=== PATIENT | female | born 1940 | race Caucasian/White ===

== ENCOUNTER → 2016-12-02 | Outpatient (CLI) | payer MEDICARE | LOC: RAD 07:51 | PROVIDERS: ATTEND Specialist | DX: C90.00 Multiple myeloma not having achieved remission (principal) | CPT/HCPCS: 78816; A9552 ==

== ENCOUNTER → 2017-09-27 | Outpatient (CLI) | payer MEDICARE ==
--- NOTE | 2017-09-27 16:11 | RADIOLOGY REPORT (SQ) ---
EXAM DESCRIPTION: BONE SURVEY COMPLETE COMPLETED DATE/TIME: 09/27/2017 3:44 pm REASON FOR STUDY: C90.00 MULTIPLE MYELOMA NOT HAVING ACHIEVED REMISSION C90.00 MULTIPLE MYELOMA NOT HAVING ACHIEVED REMISSION COMPARISON: None. TECHNIQUE: Images of the axial and proximal appendicular skeleton are obtained, along with lateral s kull and frontal chest films. LIMITATIONS: None. FINDINGS: AP CHEST: No bony findings. Lungs are clear. LATERAL SKULL: No worrisome bone lesions. AP BOTH HUMERI: The proximal right humerus is somewhat heterogeneous and there is a small well-circum scribed lytic lesion in the mid humerus. TWO-VIEW LUMBAR SPINE: No worrisome bone lesions. Scoliosis, degenerative disc changes and spondylos is and facet arthropathy are seen. TWO-VIEW THORACIC SPINE: No worrisome bone lesions. AP PELVIS: No worrisome bone lesions. AP BOTH FEMURS: There is a 7 mm well-circumscribed lytic lesion in the base of the right femoral neck . OTHER: Cervical degenerative disc changes and spondylosis. IMPRESSION: There are subtle findings in the right humerus and right hip as described. TECHNICAL DOCUMENTATION: JOB ID: [id number] [employer]- All Rights Reserved Reading location - IP/workstation name: [email or web address]
== END ==
LOC: RAD 15:35
PROVIDERS: ATTEND Internal Medicine Hematology & Oncology
DX: C90.00 Multiple myeloma not having achieved remission (principal)
CPT/HCPCS: 77075

== ENCOUNTER → 2018-01-17 | Outpatient (CLI) | payer MEDICARE ==
--- NOTE | 2018-01-17 17:45 | RADIOLOGY REPORT (SQ) ---
EXAM DESCRIPTION: SHOULDER LEFT 2 OR MORE VIEWS COMPLETED DATE/TIME: 01/17/2018 5:36 pm REASON FOR STUDY: M26.52 LIMITED MANDIBULAR RANGE OF MOTION C90.00 MULTIPLE MYELOMA NOT HAVIN M26.52 LIMITED MANDIBULAR RANGE OF MOTION C90.00 MULTIPLE MYELOMA NOT HAVING ACHIEVED REMISSION COMPARISON: 09/27/2017 NUMBER OF VIEWS: Three views. TECHNIQUE: Internal rotation, external rotation, and Y view images acquired of the left shoulder. LIMITATIONS: None. FINDINGS: MINERALIZATION: Osteopenia BONES: Multiple small lytic lesions mass seen in the humerus clavicle and scapular not identified on the previous skeletal survey. Possible rib lesions. JOINTS: No dislocation. VISUALIZED LUNGS AND RIBS: Possible rib lesions SOFT TISSUES: No radiopaque foreign body. OTHER: No other significant finding. IMPRESSION: Progression disease. There are now multiple lesions seen in the humerus, scapula, clavi roseline consistent with myeloma. Possible rib lesions. TECHNICAL DOCUMENTATION: JOB ID: [id number] [employer]- All Rights Reserved Reading location - IP/workstation name: [email or web address]
== END ==
LOC: RAD 17:10
PROVIDERS: ATTEND Internal Medicine Hematology & Oncology
DX: C90.00 Multiple myeloma not having achieved remission (principal); M25.612 Stiffness of left shoulder, not elsewhere classified

== ENCOUNTER → 2018-01-23 | Outpatient (CLI) | payer MEDICARE ==
--- NOTE | 2018-01-23 17:03 | RADIOLOGY REPORT (SQ) ---
EXAM DESCRIPTION: CHEST 2 VIEWS COMPLETED DATE/TIME: 01/23/2018 4:37 pm REASON FOR STUDY: SHORTNESS OF BREATH,CHEST PAIN COMPARISON: None. EXAM PARAMETERS: NUMBER OF VIEWS: two views TECHNIQUE: Digital Frontal and Lateral radiographic views of the chest acquired. RADIATION DOSE: NA LIMITATIONS: none FINDINGS: LUNGS AND PLEURA: Lungs are mildly hyperexpanded. A minimal pleural effusion is seen post eriorly on the lateral view. No infiltrate. MEDIASTINUM AND HILAR STRUCTURES: No masses or contour abnormalities. HEART AND VASCULAR STRUCTURES: Heart size is borderline. BONES: No acute findings. HARDWARE: None in the chest. OTHER: No other significant finding. IMPRESSION: Mild chronic lung changes. Borderline cardiomegaly without lee CHF. Minimal pleural effusion seen posteriorly. TECHNICAL DOCUMENTATION: JOB ID: [id number] [employer]- All Rights Reserved Reading location - IP/workstation name: [email or web address]
== END ==
LOC: RAD 16:18
PROVIDERS: ATTEND Internal Medicine Hematology & Oncology
DX: R06.02 Shortness of breath (principal); R07.9 Chest pain, unspecified
CPT/HCPCS: 71046

== ENCOUNTER 2018-01-26 07:27 | Outpatient (CLI) | payer MEDICARE ==
[~2018-01-26 07:27] MED LIST: ACETAMINOPHEN 325 MG TABLET PO PRN; DARATUMUMAB IV PRN; DIPHENHYDRAMINE HCL 50 MG in NORMAL SALINE 50 ML IV PRN; METHYLPREDNISOLONE SOD SUCC/PF 100 MG in NORMAL SALINE 50 ML IV PRN; NORMAL SALINE 250 ML IV PRN; NORMAL SALINE IV PRN
[2018-01-26 08:11] LABS: HEMATOCRIT 29.9 % (36.0-47.0); HEMOGLOBIN 10.2 g/dL (12.0-15.5); MEAN CORPUSCULAR HEMOGLOBIN 32.7 pg (27.0-33.4); MEAN CORPUSCULAR HGB CONC 34.3 g/dL (32.0-36.0); MEAN CORPUSCULAR VOLUME 95 fl (80-97); PLATELET COUNT 142 10^3/uL (150-450); RED BLOOD COUNT 3.13 10^6/uL (3.72-5.28); RED CELL DISTRIBUTION WIDTH 16.7 % (11.5-14.0)
[2018-01-26 08:36] LABS: ABSOLUTE LYMPHOCYTES# (MANUAL) 0.7 10^3/uL (0.5-4.7); ABSOLUTE MONOCYTES # (MANUAL) 0.4 10^3/uL (0.1-1.4); ABSOLUTE NEUTROPHILS# (MANUAL) 5.5 10^3/uL (1.7-8.2); BAND NEUTROPHILS % (MANUAL) 2 % (3-5); BASOPHILS % (MANUAL) 0 % (0-2); EOSINOPHILS % (MANUAL) 5 % (0-6); LYMPHOCYTES % (MANUAL) 10 % (13-45); MONOCYTES % (MANUAL) 6 % (3-13); SEGMENTED NEUTROPHILS % (MAN) 77 % (42-78); TOTAL CELLS COUNTED 100
[2018-01-26 08:37] LABS: ANISOCYTOSIS 1+; OVALOCYTES 1+; PLATELET COMMENT DECREASED; POIKILOCYTOSIS 1+; POLYCHROMASIA SLIGHT
[2018-01-26] MEDS ORDERED: DEXAMETHASONE SOD PHOSPHATE INJ 4 MG/1 ML VIAL ONE (12:16)
[2018-01-26] MEDS ORDERED: DIPHENHYDRAMINE HCL 50 MG/ML VIAL ONE (12:16)
[2018-01-26] MEDS ORDERED: DEXAMETHASONE SOD PHOS INJ 10 MG/1 ML VIAL IV ONE (12:30)
[2018-01-26] MEDS ORDERED: DIPHENHYDRAMINE HCL 50 MG/ML VIAL IV ONE (12:30)
[2018-01-26] MEDS ORDERED: LORATADINE 10 MG TABLET PO ONE (12:30)
[2018-01-26 17:18] VITALS: BP 167/62
== END 2018-01-26 18:09 | disposition home or self-care (01) ==
LOC: II 07:27 → 5TH 07:40 → II 18:09
PROVIDERS: ATTEND Internal Medicine Hematology & Oncology
PROC: 3E0330M Introduction of Antineoplastic, Monoclonal Antibody, into Peripheral Vein, Percutaneous Approach (ICD-10-PCS; principal; 2018-01-26)
PROC: 3E033GC Introduction of Other Therapeutic Substance into Peripheral Vein, Percutaneous Approach (ICD-10-PCS; 2018-01-26)
PROC: 3E0333Z Introduction of Anti-inflammatory into Peripheral Vein, Percutaneous Approach (ICD-10-PCS; 2018-01-26)
DX: Z51.11 Encounter for antineoplastic chemotherapy (principal); C90.00 Multiple myeloma not having achieved remission; E83.119 Hemochromatosis, unspecified; N17.9 Acute kidney failure, unspecified; N18.9 Chronic kidney disease, unspecified; J06.9 Acute upper respiratory infection, unspecified; D64.9 Anemia, unspecified; G47.00 Insomnia, unspecified; E83.52 Hypercalcemia; Z99.2 Dependence on renal dialysis
CPT/HCPCS: 86900; 86901; 36415; 86850; 85025; 96413; 96415; 96367; A9270 ×2; J1100; J1200; J2930; J7030; J9145

== ENCOUNTER → 2018-01-29 | Day surgery (SDC) | payer MEDICARE ==
[~2018-01-29] MED LIST changes: +BACITRACIN INJ 50,000 UNIT VIAL ONE; +CEFAZOLIN 1 GM/D5W RTU 1 GM/50 ML RTUPB IV PRN; -DARATUMUMAB IV PRN; -DIPHENHYDRAMINE HCL 50 MG in NORMAL SALINE 50 ML IV PRN; +FENTANYL CITRATE INJ/PF 100 MCG/2 ML AMPUL ONE; +LIDOCAINE 0.5% INJ-PF (5 MG/ML) 50 ML SDV ONE; -METHYLPREDNISOLONE SOD SUCC/PF 100 MG in NORMAL SALINE 50 ML IV PRN; +MIDAZOLAM 2 MG/2 ML INJ ONE; -NORMAL SALINE 250 ML IV PRN; -NORMAL SALINE IV PRN
[2018-01-29 11:15] VITALS: BP 185/87
[2018-01-29 11:42] LABS: HEMATOCRIT 32.3 % (36.0-47.0); HEMOGLOBIN 11.2 g/dL (12.0-15.5); MEAN CORPUSCULAR HEMOGLOBIN 32.7 pg (27.0-33.4); MEAN CORPUSCULAR HGB CONC 34.5 g/dL (32.0-36.0); MEAN CORPUSCULAR VOLUME 95 fl (80-97); PLATELET COUNT 150 10^3/uL (150-450); RED BLOOD COUNT 3.41 10^6/uL (3.72-5.28); RED CELL DISTRIBUTION WIDTH 16.5 % (11.5-14.0); WHITE BLOOD COUNT 8.9 10^3/uL (4.0-10.5)
[2018-01-29 11:53] LABS: ALANINE AMINOTRANSFERASE 40 U/L (9-52); ALBUMIN 3.3 g/dL (3.5-5.0); ALKALINE PHOSPHATASE 187 U/L (38-126); ANION GAP 14 (5-19); ASPARTATE AMINO TRANSFERASE 20 U/L (14-36); BILIRUBIN,DIRECT 0.7 mg/dL (0.0-0.4); BILIRUBIN,TOTAL 0.9 mg/dL (0.2-1.3); BLOOD UREA NITROGEN 91 mg/dL (7-20); CALCIUM 7.8 mg/dL (8.4-10.2); CARBON DIOXIDE 23 mmol/L (22-30); CHLORIDE 104 mmol/L (98-107); GLUCOSE 87 mg/dL (75-110); SODIUM 141.1 mmol/L (137-145)
[2018-01-29 11:54] LABS: POTASSIUM 6.1 mmol/L (3.6-5.0)
--- NOTE | 2018-02-02 12:30 | DISCHARGE SUMMARY E ---
Discharge Summary NAME: WINIFRED KING : 1940 AGE: 77Y ADMITTED: 01/29/2018 DISCHARGED: 01/29/2018 SUMMARY OF HOSPITALIZATION: The patient is a 77-year-old white female with a history of multiple myeloma and end-stage renal failure, who was brought to ambulatory surgery for a port placement. The patient was brought to the cardiac catheterization lab, where she was found to have multiple PVCs. Her potassium level was checked and found to be 6.1. Consultation was held with her on-call machine gunner at [facility] and a decision was made to abort the procedure and for the patient to follow up with the machine gunner at [facility] at [place] the following morning. FINAL DIAGNOSES: 1. Multiple myeloma. 2. End-stage renal failure. 3. Hyperkalemia. DISPOSITION: The patient will be discharged home in the care of her family, to follow up with the dialysis center, [facility] in [place] at 0800 on 01/30/2018. DICTATING PHYSICIAN: MORENITA DIAZ M.D. [id number] PHY#: [id number] ID: [id number] JOB#: [id number] ACCT: [id number] cc:MORENITA DIAZ M.D. >
== END ==
LOC: CCL 10:10
PROVIDERS: ATTEND Surgery
DX: Z01.818 Encounter for other preprocedural examination (principal); C90.00 Multiple myeloma not having achieved remission; I12.0 Hypertensive chronic kidney disease with stage 5 chronic kidney disease or end stage renal disease; N18.6 End stage renal disease; E87.5 Hyperkalemia; Z79.899 Other long term (current) drug therapy; Z88.1 Allergy status to other antibiotic agents
CPT/HCPCS: 36415; 85027; 80053; C1752; C1788; Q9967; J2250; J3490 ×2; J0690; J3010; J1644

== ENCOUNTER 2018-02-02 09:50 | Outpatient (CLI) | payer MEDICARE ==
[~2018-02-02 09:50] MED LIST changes: -BACITRACIN INJ 50,000 UNIT VIAL ONE; -CEFAZOLIN 1 GM/D5W RTU 1 GM/50 ML RTUPB IV PRN; +DARATUMUMAB IV PRN; +DIPHENHYDRAMINE HCL 50 MG in NORMAL SALINE 50 ML IV PRN; -FENTANYL CITRATE INJ/PF 100 MCG/2 ML AMPUL ONE; -LIDOCAINE 0.5% INJ-PF (5 MG/ML) 50 ML SDV ONE; +METHYLPREDNISOLONE SOD SUCC/PF 100 MG in NORMAL SALINE 50 ML IV PRN; -MIDAZOLAM 2 MG/2 ML INJ ONE; +NORMAL SALINE 250 ML IV PRN; +NORMAL SALINE IV PRN
[2018-02-02 10:23] VITALS: BP 159/87
[2018-02-02] MEDS ORDERED: NORMAL SALINE 250 ML IV PRN (16:41)
[2018-02-02] MEDS ORDERED: CALCIUM GLUCONATE 2,000 MG in DEXTROSE 5%-WATER 100 ML IV ONE (17:30)
== END 2018-02-02 18:17 | disposition home or self-care (01) ==
LOC: II 09:50 → 5TH 10:25 → II 18:17
PROVIDERS: ATTEND Internal Medicine Hematology & Oncology
PROC: 3E0330M Introduction of Antineoplastic, Monoclonal Antibody, into Peripheral Vein, Percutaneous Approach (ICD-10-PCS; principal; 2018-02-02)
PROC: 3E0333Z Introduction of Anti-inflammatory into Peripheral Vein, Percutaneous Approach (ICD-10-PCS; 2018-02-02)
PROC: 3E033GC Introduction of Other Therapeutic Substance into Peripheral Vein, Percutaneous Approach (ICD-10-PCS; 2018-02-02)
DX: Z51.11 Encounter for antineoplastic chemotherapy (principal); C90.00 Multiple myeloma not having achieved remission
CPT/HCPCS: 96413; 96415; 96367; A9270; J0610; J1200; J2930; J7030; J9145; 96366; J7040

== ENCOUNTER 2018-02-16 09:16 | Outpatient (CLI) | payer MEDICARE ==
[~2018-02-16 09:16] MED LIST changes: +DIPHENHYDRAMINE HCL 25 MG in NORMAL SALINE 50 ML IV PRN; -DIPHENHYDRAMINE HCL 50 MG in NORMAL SALINE 50 ML IV PRN; +METHYLPREDNISOLONE SOD SUCC IV PRN; -METHYLPREDNISOLONE SOD SUCC/PF 100 MG in NORMAL SALINE 50 ML IV PRN
[2018-02-16 09:30] VITALS: BP 147/61
[2018-02-16] MEDS ORDERED: NORMAL SALINE IV PRN ×4 (09:41→11:31)
[2018-02-16] MEDS ORDERED: DARATUMUMAB IV PRN ×4 (09:41→11:31)
== END 2018-02-16 14:38 | disposition home or self-care (01) ==
LOC: II 09:16 → 5TH 09:45 → II 14:38
PROVIDERS: ATTEND Internal Medicine Hematology & Oncology
PROC: 3E0430M Introduction of Antineoplastic, Monoclonal Antibody, into Central Vein, Percutaneous Approach (ICD-10-PCS; principal; 2018-02-16)
PROC: 3E0433Z Introduction of Anti-inflammatory into Central Vein, Percutaneous Approach (ICD-10-PCS; 2018-02-16)
PROC: 3E043GC Introduction of Other Therapeutic Substance into Central Vein, Percutaneous Approach (ICD-10-PCS; 2018-02-16)
DX: Z51.11 Encounter for antineoplastic chemotherapy (principal); C90.00 Multiple myeloma not having achieved remission
CPT/HCPCS: 96413; 96415; 96367; 96374; 96360; 96417; A9270; J1200; J2930; J7040; J9145; 96375

== ENCOUNTER 2018-02-23 09:18 | Outpatient (CLI) | payer MEDICARE ==
[~2018-02-23 09:18] MED LIST changes: +DIPHENHYDRAMINE HCL 25 MG in NORMAL SALINE 50 ML INJ PRN; -DIPHENHYDRAMINE HCL 25 MG in NORMAL SALINE 50 ML IV PRN; +DIPHENHYDRAMINE HCL 50 MG in NORMAL SALINE 50 ML IV PRN; +METHYLPREDNISOLONE SOD SUCC/PF 100 MG in NORMAL SALINE 50 ML IV PRN
[2018-02-23 09:50] VITALS: BP 180/70
[2018-02-23] MEDS ORDERED: LORATADINE 10 MG TABLET PO ONE (10:00)
== END 2018-02-23 16:00 | disposition home or self-care (01) ==
LOC: II 09:18 → 5TH 09:22 → II 16:00
PROVIDERS: ATTEND Internal Medicine Hematology & Oncology
PROC: 3E0430M Introduction of Antineoplastic, Monoclonal Antibody, into Central Vein, Percutaneous Approach (ICD-10-PCS; principal; 2018-02-23)
PROC: 3E0433Z Introduction of Anti-inflammatory into Central Vein, Percutaneous Approach (ICD-10-PCS; 2018-02-23)
PROC: 3E043GC Introduction of Other Therapeutic Substance into Central Vein, Percutaneous Approach (ICD-10-PCS; 2018-02-23)
DX: Z51.11 Encounter for antineoplastic chemotherapy (principal); C90.00 Multiple myeloma not having achieved remission
CPT/HCPCS: 96413; 96415; 96367; A9270 ×2; J1200; J2930; J7040; J9145; J7030

== ENCOUNTER 2018-03-02 08:35 | Outpatient (CLI) | payer MEDICARE ==
[~2018-03-02 08:35] MED LIST changes: -DIPHENHYDRAMINE HCL 25 MG in NORMAL SALINE 50 ML INJ PRN; +DIPHENHYDRAMINE HCL 25 MG in NORMAL SALINE 50 ML IV PRN; -DIPHENHYDRAMINE HCL 50 MG in NORMAL SALINE 50 ML IV PRN; -METHYLPREDNISOLONE SOD SUCC/PF 100 MG in NORMAL SALINE 50 ML IV PRN
[2018-03-02 09:00] VITALS: BP 147/69
[2018-03-02] MEDS ORDERED: DARATUMUMAB IV PRN (09:50)
[2018-03-02] MEDS ORDERED: NORMAL SALINE IV PRN (09:50)
== END 2018-03-02 13:45 | disposition home or self-care (01) ==
LOC: II 08:35 → 5TH 08:45 → II 13:45
PROVIDERS: ATTEND Internal Medicine Hematology & Oncology
PROC: 3E0430M Introduction of Antineoplastic, Monoclonal Antibody, into Central Vein, Percutaneous Approach (ICD-10-PCS; principal; 2018-03-02)
PROC: 3E0433Z Introduction of Anti-inflammatory into Central Vein, Percutaneous Approach (ICD-10-PCS; 2018-03-02)
PROC: 3E043GC Introduction of Other Therapeutic Substance into Central Vein, Percutaneous Approach (ICD-10-PCS; 2018-03-02)
DX: Z51.11 Encounter for antineoplastic chemotherapy (principal); C90.00 Multiple myeloma not having achieved remission
CPT/HCPCS: 96413; 96415; 96367; A9270; J1200; J2930; J7040; J9145 ×2

== ENCOUNTER 2018-03-09 08:58 | Outpatient (CLI) | payer MEDICARE ==
[2018-03-09 10:30] VITALS: BP 159/72
== END 2018-03-09 14:10 | disposition home or self-care (01) ==
LOC: II 08:58 → 5TH 08:58 → II 14:10
PROVIDERS: ATTEND Internal Medicine
PROC: 3E0430M Introduction of Antineoplastic, Monoclonal Antibody, into Central Vein, Percutaneous Approach (ICD-10-PCS; principal; 2018-03-09)
PROC: 3E0433Z Introduction of Anti-inflammatory into Central Vein, Percutaneous Approach (ICD-10-PCS; 2018-03-09)
PROC: 3E043GC Introduction of Other Therapeutic Substance into Central Vein, Percutaneous Approach (ICD-10-PCS; 2018-03-09)
DX: Z51.11 Encounter for antineoplastic chemotherapy (principal); C90.00 Multiple myeloma not having achieved remission
CPT/HCPCS: 96413; 96415; 96367; 96374; 96360; 96417; A9270; J1200; J2930; J7040; J9145 ×2

== ENCOUNTER 2018-03-16 08:52 | Outpatient (CLI) | payer MEDICARE ==
[2018-03-16] MEDS ORDERED: DARATUMUMAB IV PRN (10:30)
[2018-03-16] MEDS ORDERED: NORMAL SALINE IV PRN (10:30)
[2018-03-16 12:50] VITALS: BP 162/73
== END 2018-03-16 15:12 | disposition home or self-care (01) ==
LOC: II 08:52 → 5TH 08:55 → II 15:12
PROVIDERS: ATTEND Internal Medicine Hematology & Oncology
PROC: 3E0430M Introduction of Antineoplastic, Monoclonal Antibody, into Central Vein, Percutaneous Approach (ICD-10-PCS; principal; 2018-03-16)
DX: Z51.11 Encounter for antineoplastic chemotherapy (principal); C90.00 Multiple myeloma not having achieved remission
CPT/HCPCS: 96413; 96415; A9270; J1200; J2930; J7040; J9145

== ENCOUNTER 2018-03-23 09:38 | Outpatient (CLI) | payer MEDICARE ==
[~2018-03-23 09:38] MED LIST changes: -DIPHENHYDRAMINE HCL 25 MG in NORMAL SALINE 50 ML IV PRN; -METHYLPREDNISOLONE SOD SUCC IV PRN
[2018-03-23 09:57] VITALS: BP 177/59
== END 2018-03-23 14:17 | disposition home or self-care (01) ==
LOC: 5TH 09:38 → II 09:38
PROVIDERS: ATTEND Internal Medicine
PROC: 3E0430M Introduction of Antineoplastic, Monoclonal Antibody, into Central Vein, Percutaneous Approach (ICD-10-PCS; principal; 2018-03-23)
DX: Z51.11 Encounter for antineoplastic chemotherapy (principal); C90.00 Multiple myeloma not having achieved remission
CPT/HCPCS: 96413; 96415; A9270; J7040; J9145 ×2

== ENCOUNTER 2018-04-20 09:41 | Outpatient (CLI) | payer MEDICARE ==
[2018-04-20] MEDS ORDERED: NORMAL SALINE IV PRN (10:00)
[2018-04-20] MEDS ORDERED: DARATUMUMAB IV PRN (10:00)
[2018-04-20 10:29] VITALS: BP 166/70
== END 2018-04-20 15:10 | disposition home or self-care (01) ==
LOC: II 09:41 → 5TH 09:43 → II 15:10
PROVIDERS: ATTEND Internal Medicine Hematology & Oncology
PROC: 3E0430M Introduction of Antineoplastic, Monoclonal Antibody, into Central Vein, Percutaneous Approach (ICD-10-PCS; principal; 2018-04-20)
DX: Z51.11 Encounter for antineoplastic chemotherapy (principal); C90.00 Multiple myeloma not having achieved remission
CPT/HCPCS: 96413; 96415; J7040; J9145 ×2

== ENCOUNTER 2018-05-04 09:01 | Outpatient (CLI) | payer MEDICARE ==
[2018-05-04] MEDS ORDERED: DIPHENHYDRAMINE HCL 50 MG/ML VIAL ONE (09:02)
[2018-05-04 09:14] VITALS: BP 110/57
== END 2018-05-04 13:50 | disposition home or self-care (01) ==
LOC: II 09:01 → 5TH 09:04 → II 13:50
PROVIDERS: ATTEND Internal Medicine Hematology & Oncology
PROC: 3E0430M Introduction of Antineoplastic, Monoclonal Antibody, into Central Vein, Percutaneous Approach (ICD-10-PCS; principal; 2018-05-04)
DX: Z51.11 Encounter for antineoplastic chemotherapy (principal); C90.00 Multiple myeloma not having achieved remission
CPT/HCPCS: 96413; 96415; J1200; J7040; J9145 ×2; 96360; 96374; 96417

== ENCOUNTER → 2018-05-11 | Outpatient (CLI) | payer MEDICARE | LOC: II 14:41 | PROVIDERS: ATTEND Internal Medicine Hematology & Oncology | DX: Z51.11 Encounter for antineoplastic chemotherapy (principal); C90.00 Multiple myeloma not having achieved remission ==

== ENCOUNTER 2018-05-18 09:16 | Outpatient (CLI) | payer MEDICARE ==
[2018-05-18 10:36] VITALS: BP 156/70
== END 2018-05-18 14:31 | disposition home or self-care (01) ==
LOC: II 09:16 → 5TH 09:17 → II 14:31
PROVIDERS: ATTEND Internal Medicine Hematology & Oncology
PROC: 3E0430M Introduction of Antineoplastic, Monoclonal Antibody, into Central Vein, Percutaneous Approach (ICD-10-PCS; principal; 2018-05-18)
DX: Z51.11 Encounter for antineoplastic chemotherapy (principal); C90.00 Multiple myeloma not having achieved remission
CPT/HCPCS: 96413; 96415; J7040; J9145 ×2

== ENCOUNTER 2018-06-01 13:22 | Outpatient (CLI) | payer MEDICARE ==
[2018-06-01 13:48] VITALS: BP 140/54
== END 2018-06-01 17:14 | disposition home or self-care (01) ==
LOC: II 13:22 → 5TH 13:23 → II 17:14
PROVIDERS: ATTEND Internal Medicine
PROC: 3E0430M Introduction of Antineoplastic, Monoclonal Antibody, into Central Vein, Percutaneous Approach (ICD-10-PCS; principal; 2018-06-01)
DX: Z51.11 Encounter for antineoplastic chemotherapy (principal); C90.00 Multiple myeloma not having achieved remission
CPT/HCPCS: 96413; 96415; J7040; J9145 ×2

== ENCOUNTER 2018-06-22 11:12 | Outpatient (CLI) | payer MEDICARE ==
[~2018-06-22 11:12] MED LIST changes: +NORMAL SALINE 500 ML IV PRN
[2018-06-22] MEDS ORDERED: DARATUMUMAB IV PRN (11:35)
[2018-06-22] MEDS ORDERED: NORMAL SALINE IV PRN (11:35)
[2018-06-22 14:37] VITALS: BP 158/73
== END 2018-06-22 16:33 | disposition home or self-care (01) ==
LOC: II 11:12 → 5TH 11:15 → II 16:33
PROVIDERS: ATTEND Internal Medicine Hematology & Oncology
PROC: 3E0430M Introduction of Antineoplastic, Monoclonal Antibody, into Central Vein, Percutaneous Approach (ICD-10-PCS; principal; 2018-06-22)
DX: Z51.11 Encounter for antineoplastic chemotherapy (principal); C90.00 Multiple myeloma not having achieved remission
CPT/HCPCS: 96413; 96415; 96374; 96417; J7040; J9145 ×2

== ENCOUNTER 2018-07-06 10:12 | Outpatient (CLI) | payer MEDICARE ==
[~2018-07-06 10:12] MED LIST changes: -NORMAL SALINE 500 ML IV PRN
[2018-07-06 10:34] VITALS: BP 150/65
== END 2018-07-06 14:37 | disposition home or self-care (01) ==
LOC: II 10:12 → 5TH 10:15 → II 14:37
PROVIDERS: ATTEND Internal Medicine Hematology & Oncology
PROC: 3E0430M Introduction of Antineoplastic, Monoclonal Antibody, into Central Vein, Percutaneous Approach (ICD-10-PCS; principal; 2018-07-06)
DX: Z51.11 Encounter for antineoplastic chemotherapy (principal); C90.00 Multiple myeloma not having achieved remission
CPT/HCPCS: 96413; 96415; J7040; J9145 ×2

== ENCOUNTER 2018-07-20 10:05 | Outpatient (CLI) | payer MEDICARE ==
[2018-07-20 14:21] VITALS: BP 180/79
== END 2018-07-20 14:24 | disposition home or self-care (01) ==
LOC: II 10:05 → 5TH 10:07 → II 14:24
PROVIDERS: ATTEND Internal Medicine Hematology & Oncology
PROC: 3E0430M Introduction of Antineoplastic, Monoclonal Antibody, into Central Vein, Percutaneous Approach (ICD-10-PCS; principal; 2018-07-20)
DX: Z51.11 Encounter for antineoplastic chemotherapy (principal); C90.00 Multiple myeloma not having achieved remission; G47.09 Other insomnia; E83.52 Hypercalcemia; R53.83 Other fatigue; N18.6 End stage renal disease
CPT/HCPCS: 36415; 84443; 96413; 96415; J7040; J9145 ×2

== ENCOUNTER 2018-08-03 09:36 | Outpatient (CLI) | payer MEDICARE ==
[2018-08-03 11:14] VITALS: BP 157/81
== END 2018-08-03 14:29 | disposition home or self-care (01) ==
LOC: II 09:36 → 5TH 09:39 → II 14:29
PROVIDERS: ATTEND Internal Medicine Hematology & Oncology
PROC: 3E0430M Introduction of Antineoplastic, Monoclonal Antibody, into Central Vein, Percutaneous Approach (ICD-10-PCS; principal; 2018-08-03)
DX: Z51.11 Encounter for antineoplastic chemotherapy (principal); C90.00 Multiple myeloma not having achieved remission
CPT/HCPCS: 96413; 96415; 96417; J7040; J9145 ×2

== ENCOUNTER 2018-08-31 09:26 | Outpatient (CLI) | payer MEDICARE ==
[2018-08-31 10:04] VITALS: BP 133/82
== END 2018-08-31 13:29 | disposition home or self-care (01) ==
LOC: II 09:26 → 5TH 09:34 → II 13:29
PROVIDERS: ATTEND Internal Medicine Hematology & Oncology
PROC: 3E0330M Introduction of Antineoplastic, Monoclonal Antibody, into Peripheral Vein, Percutaneous Approach (ICD-10-PCS; principal; 2018-08-31)
DX: Z51.11 Encounter for antineoplastic chemotherapy (principal); C90.00 Multiple myeloma not having achieved remission
CPT/HCPCS: 96413; 96415; 96417; J7040; J9145 ×2

== ENCOUNTER 2018-09-28 09:27 | Outpatient (CLI) | payer MEDICARE ==
[2018-09-28 09:58] VITALS: BP 146/97
== END 2018-09-28 14:45 | disposition home or self-care (01) ==
LOC: II 09:27 → 5TH 09:29 → II 14:45
PROVIDERS: ATTEND Internal Medicine Hematology & Oncology
PROC: 3E0430M Introduction of Antineoplastic, Monoclonal Antibody, into Central Vein, Percutaneous Approach (ICD-10-PCS; principal; 2018-09-28)
DX: Z51.11 Encounter for antineoplastic chemotherapy (principal); C90.00 Multiple myeloma not having achieved remission
CPT/HCPCS: 96413; 96415; 96374; 96417; J7040; J9145 ×2

== ENCOUNTER 2018-10-26 10:13 | Outpatient (CLI) | payer MEDICARE ==
[2018-10-26 10:37] VITALS: BP 149/66
[2018-10-26] MEDS ORDERED: DIPHENHYDRAMINE HCL 25 MG CAPSULE PO ONE (14:00)
== END 2018-10-26 14:05 | disposition home or self-care (01) ==
LOC: II 10:13 → 5TH 10:15 → II 14:05
PROVIDERS: ATTEND Internal Medicine Hematology & Oncology
PROC: 3E0430M Introduction of Antineoplastic, Monoclonal Antibody, into Central Vein, Percutaneous Approach (ICD-10-PCS; principal; 2018-10-26)
DX: Z51.11 Encounter for antineoplastic chemotherapy (principal); C90.00 Multiple myeloma not having achieved remission
CPT/HCPCS: 96413; 96415; 96374; 96417; J7040; J9145 ×2

== ENCOUNTER 2018-11-23 10:13 | Outpatient (CLI) | payer MEDICARE ==
[2018-11-23 10:41] VITALS: BP 130/54
== END 2018-11-23 14:54 | disposition home or self-care (01) ==
LOC: II 10:13 → 5TH 10:16 → II 14:54
PROVIDERS: ATTEND Internal Medicine Hematology & Oncology
DX: C90.00 Multiple myeloma not having achieved remission (principal); Z51.11 Encounter for antineoplastic chemotherapy
CPT/HCPCS: 96413; 96415; 96374; 96417; J7040; J9145; J1642

== ENCOUNTER → 2018-11-23 | Outpatient (CLI) | payer MEDICARE ==
--- NOTE | 2018-11-23 15:40 | RADIOLOGY REPORT (SQ) ---
EXAM DESCRIPTION: BONE SURVEY COMPLETE COMPLETED DATE/TIME: 11/23/2018 3:26 pm REASON FOR STUDY: C90.00 MULTIPLE MYELOMA NOT HAVING ACHIEVED REMISSION C90.00 MULTIPLE MYELOMA NOT HAVING ACHIEVED REMISSION COMPARISON: Left shoulder dated 01/17/2018, prior bone survey dated 09/27/2017 TECHNIQUE: Images of the axial and proximal appendicular skeleton are obtained, along with lateral s kull and frontal chest films. LIMITATIONS: None. FINDINGS: AP CHEST: There are small pulmonary nodules in both lung apices increased from prior study . LATERAL SKULL: Multiple lucencies throughout the skull suspicious for metastatic disease. AP BOTH HUMERI: Subtle lucencies in the proximal left humerus and mid right humerus suspicious for me tastatic disease. TWO-VIEW LUMBAR SPINE: Subtle lucencies in the L3 vertebral body are now noted. Metastatic disease c annot be excluded. TWO-VIEW THORACIC SPINE: Suspicious findings in dorsal spine. Metastatic disease cannot be excluded. AP PELVIS: Subtle lucencies in the both proximal femurs are noted not significantly changed from prio r study. AP BOTH FEMURS: As above. OTHER: No other significant finding. IMPRESSION: Multiple suspicious bone lesions suspicious for metastatic disease. There is been defin ite progression of findings in the skull. Suspect progression of disease in the dorsal lumbar spine as well. TECHNICAL DOCUMENTATION: JOB ID: [id number] [employer]- All Rights Reserved Reading location - IP/workstation name: [email or web address]
== END ==
LOC: RAD 14:53
PROVIDERS: ATTEND Internal Medicine
DX: C90.00 Multiple myeloma not having achieved remission (principal)
CPT/HCPCS: 77075

== ENCOUNTER 2018-12-21 10:14 | Outpatient (CLI) | payer MEDICARE | END 2018-12-21 14:30 | disposition home or self-care (01) | LOC: II 10:14 → 5TH 10:14 → II 14:30 | PROVIDERS: ATTEND Internal Medicine Hematology & Oncology | DX: Z51.11 Encounter for antineoplastic chemotherapy (principal); C90.00 Multiple myeloma not having achieved remission | CPT/HCPCS: 96413; 96415; 96417; J7040; J1642; J9145 ==

== ENCOUNTER 2019-01-18 09:29 | Outpatient (CLI) | payer MEDICARE ==
[2019-01-18 09:51] VITALS: BP 157/73
== END 2019-01-18 14:27 | disposition home or self-care (01) ==
LOC: II 09:29 → 5TH 09:31 → II 14:27
PROVIDERS: ATTEND Internal Medicine Hematology & Oncology
DX: C90.00 Multiple myeloma not having achieved remission (principal); Z51.11 Encounter for antineoplastic chemotherapy
CPT/HCPCS: 96413; 96415; J7040; J1642; J9145 ×2

== ENCOUNTER 2019-02-15 09:39 | Outpatient (CLI) | payer MEDICARE ==
[2019-02-15 10:04] VITALS: BP 170/68
== END 2019-02-15 13:32 | disposition home or self-care (01) ==
LOC: II 09:39 → 5TH 09:43 → II 13:32
PROVIDERS: ATTEND Internal Medicine
PROC: 3E0430M Introduction of Antineoplastic, Monoclonal Antibody, into Central Vein, Percutaneous Approach (ICD-10-PCS; principal; 2019-02-15)
DX: Z51.11 Encounter for antineoplastic chemotherapy (principal); C90.00 Multiple myeloma not having achieved remission
CPT/HCPCS: 96413; 96415; 96360; 96417; J7040; J1642; J9145 ×2

== ENCOUNTER 2019-03-15 09:57 | Outpatient (CLI) | payer MEDICARE ==
[2019-03-15 10:42] VITALS: BP 160/68
== END 2019-03-15 14:55 | disposition home or self-care (01) ==
LOC: II 09:57 → 5TH 09:59 → II 14:55
PROVIDERS: ATTEND Internal Medicine
PROC: 3E0430M Introduction of Antineoplastic, Monoclonal Antibody, into Central Vein, Percutaneous Approach (ICD-10-PCS; principal; 2019-03-15)
DX: Z51.11 Encounter for antineoplastic chemotherapy (principal); C90.00 Multiple myeloma not having achieved remission
CPT/HCPCS: 96413; 96415; J7040; J1642; J9145 ×2

== ENCOUNTER 2019-04-12 09:40 | Outpatient (CLI) | payer MEDICARE ==
[2019-04-12 09:58] VITALS: BP 147/54
== END 2019-04-12 14:35 | disposition home or self-care (01) ==
LOC: II 09:40 → 5TH 09:41 → II 14:35
PROVIDERS: ATTEND Internal Medicine Hematology & Oncology
PROC: 3E0430M Introduction of Antineoplastic, Monoclonal Antibody, into Central Vein, Percutaneous Approach (ICD-10-PCS; principal; 2019-04-12)
DX: Z51.11 Encounter for antineoplastic chemotherapy (principal); C90.00 Multiple myeloma not having achieved remission
CPT/HCPCS: 96413; 96415; A9270; J7040; J1642; J9145 ×2

== ENCOUNTER 2019-05-10 09:18 | Outpatient (CLI) | payer MEDICARE ==
[2019-05-10 09:43] VITALS: BP 138/60
== END 2019-05-10 14:00 | disposition home or self-care (01) ==
LOC: II 09:18 → 5TH 09:20 → II 14:00
PROVIDERS: ATTEND Internal Medicine Hematology & Oncology
PROC: 3E0430M Introduction of Antineoplastic, Monoclonal Antibody, into Central Vein, Percutaneous Approach (ICD-10-PCS; principal; 2019-05-10)
DX: Z51.11 Encounter for antineoplastic chemotherapy (principal); C90.00 Multiple myeloma not having achieved remission
CPT/HCPCS: 96415; J7040; J9145 ×2; J1642; 96413

== ENCOUNTER 2019-06-07 09:38 | Outpatient (CLI) | payer MEDICARE ==
[~2019-06-07 09:38] MED LIST changes: -NORMAL SALINE 250 ML IV PRN
[2019-06-07] MEDS: NORMAL SALINE 250 ML IV PRN ×2 (09:52→10:03)
[2019-06-07 09:53] VITALS: BP 155/60
== END 2019-06-07 14:45 | disposition home or self-care (01) ==
LOC: II 09:38 → 5TH 09:40 → II 14:45
PROVIDERS: ATTEND Internal Medicine Hematology & Oncology
PROC: 3E0430M Introduction of Antineoplastic, Monoclonal Antibody, into Central Vein, Percutaneous Approach (ICD-10-PCS; principal; 2019-06-07)
DX: Z51.11 Encounter for antineoplastic chemotherapy (principal); C90.00 Multiple myeloma not having achieved remission
CPT/HCPCS: 96413; 96415; J7040; J9145 ×2; J1642

== ENCOUNTER 2019-07-05 09:10 | Outpatient (CLI) | payer MEDICARE ==
[~2019-07-05 09:10] MED LIST changes: +NORMAL SALINE 250 ML IV PRN
[2019-07-05 11:17] VITALS: BP 148/62
== END 2019-07-05 13:38 | disposition home or self-care (01) ==
LOC: II 09:10 → 5TH 09:11 → II 13:38
PROVIDERS: ATTEND Internal Medicine Hematology & Oncology
DX: Z51.11 Encounter for antineoplastic chemotherapy (principal); C90.00 Multiple myeloma not having achieved remission
CPT/HCPCS: 96413; 96415; J7040; J9145 ×2; J1642

== ENCOUNTER 2019-08-02 09:45 | Outpatient (CLI) | payer MEDICARE ==
[2019-08-02 14:31] VITALS: BP 141/59
== END 2019-08-02 14:31 | disposition home or self-care (01) ==
LOC: II 09:45 → 5TH 09:46 → II 14:31
PROVIDERS: ATTEND Internal Medicine Hematology & Oncology
DX: Z51.11 Encounter for antineoplastic chemotherapy (principal); C90.00 Multiple myeloma not having achieved remission
CPT/HCPCS: 96413; 96415; J7040; J9145 ×2; J1642

== ENCOUNTER 2019-08-30 09:19 | Outpatient (CLI) | payer MEDICARE ==
[2019-08-30 10:51] VITALS: BP 155/69
== END 2019-08-30 14:01 | disposition home or self-care (01) ==
LOC: II 09:19 → 5TH 09:21 → II 14:01
PROVIDERS: ATTEND Internal Medicine Hematology & Oncology
DX: Z51.11 Encounter for antineoplastic chemotherapy (principal); C90.00 Multiple myeloma not having achieved remission
CPT/HCPCS: 96413; 96415; J7040; J9145 ×2; J1642

== ENCOUNTER 2019-09-27 09:43 | Outpatient (CLI) | payer MEDICARE ==
[~2019-09-27 09:43] MED LIST changes: +NORMAL SALINE 250 ML @ KVO IV PRN; -NORMAL SALINE 250 ML IV PRN
[2019-09-27] MEDS ORDERED: NORMAL SALINE IV PRN (10:44)
[2019-09-27] MEDS ORDERED: DARATUMUMAB IV PRN (10:44)
[2019-09-27 13:41] VITALS: BP 169/72
== END 2019-09-27 14:32 | disposition home or self-care (01) ==
LOC: II 09:43 → 5TH 09:46 → II 14:32
PROVIDERS: ATTEND Internal Medicine Hematology & Oncology
DX: Z51.11 Encounter for antineoplastic chemotherapy (principal); C90.00 Multiple myeloma not having achieved remission
CPT/HCPCS: 96413; 96415; J7040; J9145 ×2; J1642

== ENCOUNTER → 2019-10-04 | Outpatient (CLI) | payer MEDICARE ==
--- NOTE | 2019-10-04 16:13 | RADIOLOGY REPORT (SQ) ---
EXAM DESCRIPTION: BONE SURVEY COMPLETE COMPLETED DATE/TIME: 10/04/2019 3:36 pm REASON FOR STUDY: C90.00 MULTIPLE MYELOMA NOT HAVING ACHIEVED REMISSION C90.00 MULTIPLE MYELOMA NOT HAVING ACHIEVED REMISSION COMPARISON: None. TECHNIQUE: Images of the axial and proximal appendicular skeleton are obtained, along with lateral s kull and frontal chest films. LIMITATIONS: None. FINDINGS: AP CHEST: Nodular densities in the lung apices, chronic. New destructive lesion in the di stal right clavicle. LATERAL SKULL: Numerous lytic lesions as before. AP BOTH HUMERI: No progressive disease. TWO-VIEW LUMBAR SPINE: No progressive disease or developing fracture. TWO-VIEW THORACIC SPINE: No progressive disease or developing fracture. AP PELVIS: No worrisome bone lesions. AP BOTH FEMURS: No worrisome bone lesions. OTHER: Destructive lesion in the distal right fibula suggested. New since prior. IMPRESSION: New destructive bone lesions in the right distal clavicle and right distal fibula. TECHNICAL DOCUMENTATION: JOB ID: [id number] [employer]- All Rights Reserved Reading location - IP/workstation name: [email or web address]
== END ==
LOC: RAD 14:49
PROVIDERS: ATTEND Nurse Practitioner Family
DX: C90.00 Multiple myeloma not having achieved remission (principal)
CPT/HCPCS: 77075